=== PATIENT | female | born 1965 | race Caucasian/White ===

== ENCOUNTER 2017-01-01 18:16 | Emergency (ER) | payer SELFPAY ==
[~2017-01-01] VITALS: Ht 165.1 cm; Wt 59.2 kg
[~2017-01-01 18:16] MED LIST: ALLERGY RELIEF10 M1 PO; Aspirin E.C. PO; BUSPAR15 MG PO; CLONAZEPAM0.5 MG PO; CYMBALTA60 MG PO; DULOXETINE HCL60 MG PO; FLONASE16 G1 BOTH NARES; KLONOPIN0.5 M1 PO; NAPROSYN500 MG PO; OMEPRAZOLE40 M1 PO; PERCOCET 5/31 TABLET PO; PREDNISONE20 MG PO; SEROQUEL12.5 MG PO; SINGULAIR10 MG PO; VOLTAREN50 MG PO; ZYRTEC10 M3 PO
[2017-01-01 18:26] VITALS: BP 158/101
[2017-01-01 18:53] LABS: AMPHETAMINE NEGATIVE (500 ng/mL); BARBITURATES NEGATIVE (200 ng/mL); BENZODIAZEPINES NEGATIVE (150 ng/mL); COCAINE NEGATIVE (150 ng/mL); INTERNAL CONTROLS VALID? YES; METHADONE NEGATIVE (200 ng/mL); METHAMPHETAMINE NEGATIVE (500 ng/mL); OPIATES (MORPHINE) NEGATIVE (100 ng/mL); OXYCODONE NEGATIVE (100 ng/mL); PHENCYCLIDINE NEGATIVE (25 ng/mL); PROPOXYPHENE NEGATIVE (300 ng/mL); THC CANNABINOIDS NEGATIVE (50 ng/mL); TRICYCLIC ANTIDEPRESSANTS NEGATIVE (300 ng/mL)
[2017-01-01 18:57] LABS: HEMATOCRIT 40.6 % (36.0-46.0); MCH 31.3 PG (29.0-34.0); MCHC 34.5 G/DL (30.0-36.0); MCV 90.8 FL (83-99); MEAN PLAT.VOLUME 9.8 uM^3 (9.5-12.4); PLATELET COUNT 213 K/uL (156-360); RBC DIS.WIDTH-CV 12.2 % (11.8-14.6); RBC DIS.WIDTH-SD 40.8 % (39-53); RED BLOOD COUNT 4.47 M/uL (3.80-5.20); WHITE BLOOD COUNT 6.9 K/uL (4.1-10.2)
[2017-01-01 19:05] LABS: CHLORIDE 106 mEq/L (99-109); POTASSIUM 3.8 mEq/L (3.7-5.4); SODIUM 141 mEq/L (136-147)
[2017-01-01 19:07] LABS: GLUCOSE 91 mg/dL (70-99)
[2017-01-01 19:09] LABS: ANION GAP 9 MEQ/L (2-14)
[2017-01-01 19:10] LABS: SERUM ETHYL ALCOHOL < 10 mg/dL
[2017-01-01 19:11] LABS: GFR ESTIMATE (CALCULATED) > 59 mL/min/
[2017-01-01 19:12] LABS: UREA NITROGEN (BUN) 14 mg/dL (9-23)
== END 2017-01-01 20:57 | disposition left against medical advice (07) ==
LOC: EME 18:16
DX: R45.851 Suicidal ideations (principal); Z53.21 Procedure and treatment not carried out due to patient leaving prior to being seen by health care provider
CPT/HCPCS: 80048; 85027; G0480

== ENCOUNTER 2017-06-12 14:45 | Emergency (ER) | payer OTHER ==
[~2017-06-12] VITALS: Ht 165.1 cm; Wt 58.8 kg
[2017-06-12 15:21] LABS: HEMATOCRIT 40.5 % (36.0-46.0); HEMOGLOBIN 14.7 G/DL (11.9-15.5); MCH 31.8 PG (29.0-34.0); MCHC 36.3 G/DL (30.0-36.0); MCV 87.7 FL (83-99); PLATELET COUNT 231 K/uL (156-360); RBC DIS.WIDTH-CV 12.4 % (11.8-14.6); RED BLOOD COUNT 4.62 M/uL (3.80-5.20); WHITE BLOOD COUNT 7.4 K/uL (4.1-10.2)
[2017-06-12 15:36] LABS: CHLORIDE 106 mEq/L (99-109); POTASSIUM 3.8 mEq/L (3.7-5.4); SODIUM 137 mEq/L (136-147)
[2017-06-12 15:38] LABS: GLUCOSE 92 mg/dL (70-99)
[2017-06-12 15:41] LABS: TROP-I INTERPRETATION NEGATIVE; TROPONIN-I < 0.01 ng/mL (0.0-0.30)
[2017-06-12 15:42] LABS: CREATININE 0.8 mg/dL (0.6-1.3); GFR ESTIMATE (CALCULATED) > 59 mL/min/
[2017-06-12 15:43] LABS: UREA NITROGEN (BUN) 13 mg/dL (9-23)
[2017-06-12 16:04] LABS: MAGNESIUM 2.3 mg/dL (1.3-2.7)
[2017-06-12 16:21] LABS: SERUM ETHYL ALCOHOL < 10 mg/dL
[2017-06-12 16:27] LABS: D-DIMER ELISA < 150.00 ng/mLDDU (<230)
[2017-06-12 18:00] VITALS: BP 132/85
== END 2017-06-12 18:00 | disposition home or self-care (01) ==
LOC: EME 14:45
DX: R00.0 Tachycardia, unspecified (principal); F17.200 Nicotine dependence, unspecified, uncomplicated; Z98.890 Other specified postprocedural states; Z90.49 Acquired absence of other specified parts of digestive tract
CPT/HCPCS: 71046; 80048; 83735; 84484; 85027; 85379; 93005; 99281; 99285; G0480; J7030